=== PATIENT | male | born 1985 | race Caucasian/White ===

== ENCOUNTER 2023-10-17 16:59 | Emergency (ER) | payer SELFPAY ==
[2023-10-17 17:05] VITALS: RESP 20; TEMP 98.6; BMI 27.0
[2023-10-17] MEDS ORDERED: LIDOCAINE 4% PATCH TP ONE (18:05)
[2023-10-17] MEDS ORDERED: METHOCARBAMOL 500 MG TABLET ONE (18:06)
[2023-10-17] MEDS: LIDOCAINE 4% PATCH TP ONE (18:09)
[2023-10-17] MEDS: METHOCARBAMOL 500 MG TABLET PO ONE (18:09)
[2023-10-17] MEDS: SODIUM CHLORIDE 1,000 ML IV STA (18:18)
[2023-10-17 18:21] LABS: PH,URINE 5.5 (5.0-8.0); URINE APPEARANCE TURBID; URINE BILIRUBIN NEGATIVE (NEGATIVE); URINE COLOR YELLOW; URINE GLUCOSE (UA) NEGATIVE (NEGATIVE); URINE KETONE TRACE (NEGATIVE); URINE LEUK ESTERASE NEGATIVE (NEGATIVE); URINE NITRITE NEGATIVE (NEGATIVE); URINE PROTEIN NEGATIVE (NEGATIVE)
[2023-10-17 19:00] VITALS: BP 102/75; PULSE 95
== END 2023-10-17 19:02 | disposition home or self-care (01) ==
LOC: JER 16:59
DX: M62.830 Muscle spasm of back (principal); M54.50 Low back pain, unspecified
CPT/HCPCS: 72100-TC-FY; 81003; 87086; 99284-25